=== PATIENT | female | born 1985 | race Two or more races ===

== ENCOUNTER 2018-03-20 05:28 | Emergency (ER) | payer BC, OTHER ==
[~2018-03-20] VITALS: Ht 162.6 cm; Wt 117.9 kg
[~2018-03-20 05:28] MED LIST: IBUPROFEN600 MG ORAL; NKM
[2018-03-20 05:45] VITALS: BP 111/74
[2018-03-20] MEDS ORDERED: TRAMADOL HCL50 MG ORAL (05:55)
[2018-03-20] MEDS ORDERED: IBUPROFEN600 MG ORAL (05:55)
--- NOTE | 2018-03-20 05:59 | Emergency Room Report ---
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 She presents with right knee pain. She had fallen and had MRI of her right knee as a Workmen's Comp. She said that she was told there were bruising but no tear of the require surgery. She was off work for 3 months. She was doing well until yesterday. She said as she was walking the knee would locked up and she felt pain. No trauma. No fever or chills. There is some swelling. Nothing made it better. Walking made it worse. Pain is 8 out of 10. Allergies: Coded Allergies: No Known Allergies (Unverified , 06/23/14) Patient History Past Medical History: see triage record, old chart reviewed Past Surgical History: other Pertinent Family History: none Social History: Denies: smoking Last Menstrual Period: unk Now: No Immunizations: other Reviewed Nursing Documentation: PMH: Agreed; PSxH: Agreed Nursing Documentation-PMH Past Medical History: No History, Except For Hx Cardiac Problems: Yes - HEART MURMUR, OPEN HEART SURGERY Hx Gastrointestinal Problems: No - Cholecystectomy Review of Systems Eye: Denies: eye pain, blurred vision ENT: Denies: ear pain, nose congestion, throat swelling Respiratory: Denies: cough, shortness of breath Cardiovascular: Denies: chest pain, palpitations Gastrointestinal: Denies: abdominal pain, diarrhea, nausea, vomiting Musculoskeletal: Reports: joint pain; Denies: back pain Skin: Denies: rash Neurological: Denies: headache, numbness Endocrine: Denies: increased thirst, increased urine Hematologic/Lymphatic: Denies: easy bruising All Other Systems: negative except mentioned in HPI Physical Exam Vital Signs Date Time Temp Pulse Resp B/P (MAP) Pulse Ox O2 Delivery O2 Flow Rate FiO2 03/20/18 05:41 97.8 76 16 111/74 95 97.9 vitals normal Sp02 EP Interpretation: reviewed, normal General Appearance: well appearing, no apparent distress, alert Head: normocephalic, atraumatic Eyes: bilateral eye PERRL, bilateral eye EOMI ENT: hearing grossly normal, normal pharynx Neck: full range of motion, supple, no meningismus Respiratory: chest non-tender, lungs clear, normal breath sounds Cardiovascular #1: regular rate, rhythm, no murmur Gastrointestinal: normal bowel sounds, non tender, no mass, no organomegaly, no bruit, non-distended Musculoskeletal: back normal, normal range of motion, other - Right knee: There is effusion. No deformity. Slight laxity to anterior drawer sign. Full range of motion. Pulses normal. Sensation normal. Neurologic: alert, oriented x3 Psychiatric: mood/affect normal Skin: warm/dry Procedures Splinting Splinting : Consent: Verbal Location: Right knee Pre-Made Type: knee immobilizer Pre-Proc Neuro Vasc Exam: normal Post-Proc Neuro Vasc Exam: normal Patient Tolerated: Well Complications: None Medical Decision Making Diagnostic Impression: Primary Impression: Right knee sprain Qualified Codes: S83.91XA - Sprain of unspecified site of right knee, initial encounter ER Course Patient with right knee sprain. No evidence of any fracture dislocation. She may need another MRI if not better. No evidence of septic joint. Other X-Ray Diagnostic Results Other X-Ray Diagnostic Results : X-Ray ordered: Right knee x-rays # of Views/Limited Vs Complete: 4 View Indication: Pain EP Interpretation: Yes Interpretation: no dislocation, no soft tissue swelling, no fractures Impression: No acute disease Electronically Signed by: Bandar Amaya MD Last Vital Signs Date Time Temp Pulse Resp B/P (MAP) Pulse Ox O2 Delivery O2 Flow Rate FiO2 03/20/18 05:41 97.8 76 16 111/74 95 97.9 Status: improved Disposition: HOME, SELF-CARE Condition: Stable Scripts Tramadol Hcl* (ULTRAM*) 50 Mg Tablet 50 MG ORAL Q6H PRN for For Pain, #20 TAB 0 Refills Prov: BANDAR AMAYA M.D. 03/20/18 Ibuprofen* (MOTRIN*) 600 Mg Tablet 600 MG ORAL THREE TIMES A DAY, #30 TAB 0 Refills Prov: BANDAR AMAYA M.D. 03/20/18 Additional Instructions: Ice pack to the area. Use crutches as needed. Follow-up with your doctor in 7 days. Return if worse. BANDAR AMAYA M.D. Mar 20, 2018 05:59
[2018-03-20 06:32] VITALS: BP 111/74
--- NOTE | 2018-03-20 10:31 | Diagnostic Imaging Report ---
Indication: Pain and popping in right knee for to days Technique: 4 views of the right knee Comparison: None Findings: There is questionably a small suprapatellar effusion. There are small lateral compartment osteophytes. Joint spaces are preserved. No acute fractures. No dislocations Impression: Possible small effusion. No acute bony trauma
== END 2018-03-20 06:15 | disposition home or self-care (01) ==
LOC: EMR 05:57
DX: S83.91XA Sprain of unspecified site of right knee, initial encounter (principal); Y93.01 Activity, walking, marching and hiking; Y92.89 Other specified places as the place of occurrence of the external cause
CPT/HCPCS: 99283

== ENCOUNTER 2020-01-21 16:06 | Emergency (ER) | payer BC, OTHER ==
[~2020-01-21] VITALS: Ht 162.6 cm; Wt 111.6 kg
[~2020-01-21 16:06] MED LIST changes: +TRAMADOL HCL50 MG ORAL
[2020-01-21 16:25] VITALS: BP 117/66
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
[2020-01-21] MEDS ORDERED: Bacitracin Oint UD TOPIC ONE (17:00)
[2020-01-21] MEDS ORDERED: Methocarbamol 500mg tab ORAL ONE (17:00)
--- NOTE | 2020-01-21 17:01 | NUR ---
ED Nurse Note: Xray at bedside.
--- NOTE | 2020-01-21 17:20 | Diagnostic Imaging Report ---
Indication: Right hand pain Technique: 3 views right hand Comparison: none Findings: No acute fractures. No dislocations. Joint spaces are preserved. Impression: Negative
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
[2020-01-21] MEDS ORDERED: TYLENOL EXTRA500 MG ORAL (17:43)
[2020-01-21] MEDS ORDERED: LIDODERM700 M1 TOPIC (17:43)
[2020-01-21] MEDS ORDERED: BACITRACIN15 GM TOPIC (17:43)
[2020-01-21] MEDS ORDERED: METHOCARBAMOL750 MG ORAL (17:43)
[2020-01-21 17:54] VITALS: BP 117/66
--- NOTE | 2020-01-21 17:54 | NUR ---
ED Nurse Note: Pt cleared by ERPA for discharge. DC instructions/prescription was given and explained to pt and verbalized understanding of teachings. All medical deviecs such as ID band removed. Pt is AAO x4, ambulatory and left with all personal belongings.
== END 2020-01-21 17:54 | disposition home or self-care (01) ==
LOC: EMR 16:40 → EEVIPCON 16:40 → EMR 17:54
DX: S60.221A Contusion of right hand, initial encounter (principal); M62.838 Other muscle spasm; S50.812A Abrasion of left forearm, initial encounter; S50.811A Abrasion of right forearm, initial encounter; T14.8XXA Other injury of unspecified body region, initial encounter; V43.52XA Car driver injured in collision with other type car in traffic accident, initial encounter; Y92.410 Unspecified street and highway as the place of occurrence of the external cause; Z04.9 Encounter for examination and observation for unspecified reason; E03.9 Hypothyroidism, unspecified; M54.2 Cervicalgia; R07.9 Chest pain, unspecified; R10.9 Unspecified abdominal pain
CPT/HCPCS: 99283